=== PATIENT | male | born 1940 | race Caucasian/White ===

== ENCOUNTER 2017-06-13 07:20 | Emergency (ER) | payer OTHER, BC ==
[~2017-06-13] VITALS: Ht 180.3 cm; Wt 100.1 kg
[~2017-06-13 07:20] MED LIST: ATORVASTATIN CA80 MG PO; BENTYL20 MG PO; Ecotrin PO; FINASTERIDE5 MG PO; FLOMAX0.4 MG PO; GABAPENTIN300 MG PO; LYRICA50 MG PO; NITROSTAT,NITR0.4 M1 SL; OXCARBAZEPINE300 MG PO; TESSALON200 MG PO; ZOFRAN ODT4 MG PO; [UNRECOGNIZED DRUG - OTHER]
[2017-06-13 08:02] LABS: EOSINOPHIL (%) 0.8 % (0-5); EOSINOPHIL COUNT 0.1 K/uL (0-0.3); HEMATOCRIT 40.6 % (38.0-50.0); IMMATURE GRANULOCYTE (%) 0.5 % (0.0-0.7); INSTRUMENT ABS NEUTROPHIL CT 4.4 K/uL; LYMPHOCYTE COUNT 1.3 K/uL (1.0-2.8); MCH 30.1 PG (29.0-34.0); MCHC 34.7 G/DL (30.0-36.0); MCV 86.6 FL (86-99); MEAN PLAT.VOLUME 9.4 uM^3 (9.0-12.4); MONOCYTE COUNT 0.4 K/uL (0-0.8); NEUTROPHIL (%) 71.9 % (45-76); NEUTROPHIL COUNT 4.4 K/uL (1.8-6.4); PLATELET COUNT 191 K/uL (156-360); RBC DIS.WIDTH-CV 12.3 % (11.8-14.6); RBC DIS.WIDTH-SD 38.9 % (39-53); RED BLOOD COUNT 4.69 M/uL (4.00-5.50); WHITE BLOOD COUNT 6.2 K/uL (4.1-10.2)
[2017-06-13 08:14] LABS: CHLORIDE 103 mEq/L (99-109); POTASSIUM 4.2 mEq/L (3.7-5.4); SODIUM 136 mEq/L (136-147)
[2017-06-13 08:16] LABS: GLUCOSE 107 mg/dL (70-99)
[2017-06-13 08:17] LABS: ANION GAP 10 MEQ/L (2-14)
[2017-06-13 08:20] LABS: GFR ESTIMATE (CALCULATED) > 59 mL/min/
[2017-06-13 08:21] LABS: UREA NITROGEN (BUN) 18 mg/dL (9-23)
[2017-06-13] MEDS ORDERED: MUCUS ER600 MG PO (09:15)
[2017-06-13] MEDS ORDERED: DOXYCYCLINE HY100 MG PO (09:15)
[2017-06-13 09:30] VITALS: BP 138/65
== END 2017-06-13 09:36 | disposition home or self-care (01) ==
LOC: EME 07:20
PROVIDERS: Emergency Medicine
DX: J06.9 Acute upper respiratory infection, unspecified (principal); R11.2 Nausea with vomiting, unspecified; R19.7 Diarrhea, unspecified; R35.0 Frequency of micturition; I10 Essential (primary) hypertension; Z90.49 Acquired absence of other specified parts of digestive tract; Z87.891 Personal history of nicotine dependence
CPT/HCPCS: 71010; 80048; 85025; 93005; 99281; 99284

== ENCOUNTER 2017-10-22 11:08 | Emergency (ER) | payer OTHER, BC ==
[~2017-10-22] VITALS: Ht 180.3 cm; Wt 100.0 kg
[~2017-10-22 11:08] MED LIST changes: -ATORVASTATIN CA80 MG PO; +DOXYCYCLINE HY100 MG PO; +LIPITOR20 MG PO; +MUCUS ER600 MG PO
[2017-10-22 12:02] LABS: HEMATOCRIT 42.6 % (38.0-50.0); HEMOGLOBIN 14.9 G/DL (12.5-16.6); MCH 30.2 PG (29.0-34.0); MCV 86.4 FL (86-99); PLATELET COUNT 199 K/uL (156-360); RBC DIS.WIDTH-CV 12.3 % (11.8-14.6); RBC DIS.WIDTH-SD 38.9 % (39-53); RED BLOOD COUNT 4.93 M/uL (4.00-5.50); WHITE BLOOD COUNT 8.6 K/uL (4.1-10.2)
[2017-10-22 12:11] LABS: ALBUMIN 4.3 g/dL (3.2-4.8)
[2017-10-22 12:12] LABS: CHLORIDE 98 mEq/L (99-109); POTASSIUM 4.5 mEq/L (3.7-5.4); SODIUM 132 mEq/L (136-147)
[2017-10-22 12:14] LABS: GLUCOSE 103 mg/dL (70-99); TOTAL PROTEIN 6.9 g/dL (6.4-8.3)
[2017-10-22 12:16] LABS: TOTAL BILIRUBIN 0.8 mg/dL (0.0-1.0)
[2017-10-22 12:17] LABS: ALKALINE PHOSPHATASE 81 IU/L (3-129)
[2017-10-22 12:18] LABS: CREATININE 1.1 mg/dL (0.6-1.3); GFR ESTIMATE (CALCULATED) > 59 mL/min/ (58.99-99999)
[2017-10-22 12:19] LABS: AST (GOT) 22 IU/L (2-34); DIRECT BILIRUBIN 0.4 mg/dL (0.0-0.3); UREA NITROGEN (BUN) 14 mg/dL (9-23)
[2017-10-22 12:21] LABS: ALT (GPT) 18 IU/L (3-49); LIPASE 21 U/L (1.0-51.0)
[2017-10-22] MEDS ORDERED: AUGMENTIN875 MG PO (14:14)
[2017-10-22 14:30] VITALS: BP 133/60
== END 2017-10-22 14:39 | disposition home or self-care (01) ==
LOC: EME 11:08
PROVIDERS: Emergency Medicine
DX: K52.89 Other specified noninfective gastroenteritis and colitis (principal); K59.00 Constipation, unspecified; N20.0 Calculus of kidney; I10 Essential (primary) hypertension; Z90.49 Acquired absence of other specified parts of digestive tract; Z87.891 Personal history of nicotine dependence
CPT/HCPCS: 74176; 80048; 80076; 83690; 85027; 99281; 99285